=== PATIENT | female | born 1990 | race Asian ===

== ENCOUNTER 2022-03-24 09:32 | Outpatient (CLI) | payer BC | END 2022-03-24 09:33 | disposition home or self-care (01) | LOC: CSHLAB 09:32 | PROVIDERS: ATTEND Obstetrics & Gynecology | DX: Z01.812 Encounter for preprocedural laboratory examination (principal); Z20.822 Contact with and (suspected) exposure to COVID-19 | CPT/HCPCS: 85027; 86780; 86850; 86900; 86901; 87340; U0003; U0005 ==

== ENCOUNTER 2022-03-25 05:31 | Inpatient (IN) | payer BC ==
[2022-03-24 13:55] LABS: Hemoglobin 13.2 g/dL (12.0-15.5); Mean Corpuscular Hemoglobin 29.1 pg (27.0-33.0); Mean Corpuscular Volume 90.9 fl (81.6-98.3); Mean Platelet Volume 11.1 fl (7.4-10.4); Platelet Count 207 10x3/uL (150-450); RBC Distribution Width 14.2 % (11.5-14.5); Red Blood Cell (RBC) Count 4.53 10x6/uL (3.90-5.03); White Blood Cell (WBC) Count 5.4 10x3/uL (3.5-10.5)
[2022-03-24 14:34] LABS: Hep B Surf Ag Non-Reactive S/CO (NonReactive)
[2022-03-24 14:35] LABS: Syphilis Antibody Nonreactive (Nonreactive); Syphilis Antibody Index 0.14 S/CO (<1.00 Non-Reactive)
[2022-03-24 15:18] LABS: HBSAg Index 0.13 S/CO (0-0.99)
[2022-03-25] MEDS ORDERED: hydrALAZINE 20 MG/ML VIAL SLOW IVP PRN ×2 (05:59→09:42)
[2022-03-25] MEDS ORDERED: Bicitra 30 ML UDCUP PO PRN (05:59)
[2022-03-25] MEDS ORDERED: ceFAZolin 2 GM/Dextrose 50 ML 2 GM in Premix Bag 1 BAG IVPB SCH (05:59)
[2022-03-25] MEDS ORDERED: Ondansetron PF 4 MG/2 ML Vial IVP PRN ×3 (05:59→09:42)
[2022-03-25] MEDS ORDERED: Promethazine HCl 25 MG/ML VIAL IM PRN ×3 (05:59→09:42)
[2022-03-25] MEDS ORDERED: Famotidine/PF 20 mg/2ml Vial SLOW IVP PRN (05:59)
[2022-03-25] MEDS ORDERED: Lactated Ringer's 1,000 ML IV SCH (05:59)
[2022-03-25 06:00] VITALS: BMI 23.8
[2022-03-25] MEDS ORDERED: Morphine PF 10 MG/10 ML VIAL ONE (07:18)
[2022-03-25] MEDS ORDERED: Ondansetron PF 4 MG/2 ML Vial ONE (07:19)
[2022-03-25] MEDS ORDERED: ePHEDrine Sulfate 50 MG/10 ML VIAL ONE (07:19)
[2022-03-25] MEDS ORDERED: Ketorolac Tromethamine 30 MG/ML VIAL ONE (07:19)
[2022-03-25] MEDS ORDERED: Oxytocin 10 UNITS/ML VIAL ONE ×2 (07:19→08:53)
[2022-03-25] MEDS ORDERED: Glycopyrrolate 0.2 MG/ML 5 ML SYRINGE ONE (07:19)
[2022-03-25] MEDS ORDERED: Fentanyl 100 MCG/2 ML VIAL ONE (08:05)
[2022-03-25] MEDS ORDERED: diphenhydrAMINE 50 MG/ML VIAL IVP PRN (08:58)
[2022-03-25] MEDS ORDERED: Moisturizing Cream (Eucerin) 113 GM JAR TOP PRN (08:58)
[2022-03-25] MEDS ORDERED: Naloxone HCl 0.4 mg/ml Vial IVP PRN ×2 (08:58)
[2022-03-25] MEDS ORDERED: Naloxone HCl 0.4 mg/ml Vial IV PRN (08:58)
[2022-03-25] MEDS ORDERED: Ondansetron HCl/PF 4 MG/2 ML Vial IVP PRN (08:58)
[2022-03-25] MEDS ORDERED: Fentanyl 100 MCG/2 ML VIAL SLOW IVP PRN (08:58)
[2022-03-25] MEDS ORDERED: Promethazine HCl 25 MG SUPP PR PRN (08:58)
[2022-03-25] MEDS ORDERED: Meperidine HCl/PF 25 MG/ML VIAL SLOW IVP PRN (08:58)
[2022-03-25] MEDS ORDERED: Communication Order-Pharmacy FS SCH (09:00)
[2022-03-25] MEDS ORDERED: Boostrix 0.5 ML (Tdap) VIAL IM ONE (09:42)
[2022-03-25] MEDS ORDERED: Lanolin Ointment 7 GM TUBE TOP PRN (09:42)
[2022-03-25] MEDS ORDERED: diphenhydrAMINE 25 MG CAP PO PRN (09:42)
[2022-03-25] MEDS ORDERED: Polyethylene Glycol 3350 17 GM Packet PO PRN (09:42)
[2022-03-25] MEDS ORDERED: Bisacodyl 10 MG SUPP PR PRN (09:42)
[2022-03-25] MEDS ORDERED: Acetaminophen 500 MG TAB PO PRN (09:42)
[2022-03-25] MEDS ORDERED: Simethicone Chewable 80 MG TAB PO PRN (09:42)
[2022-03-25] MEDS ORDERED: NS w/ Oxytocin 30 units 500 ML IV SCH (09:42)
[2022-03-25] MEDS ORDERED: Prenatal Vitamin 1 TAB PO SCH (10:15)
[2022-03-25] MEDS ORDERED: Docusate 100 MG CAP PO SCH (10:15)
[2022-03-25] MEDS: Ferrous Sulfate 325 MG TAB PO SCH ×2 (11:35→20:27)
[2022-03-25 12:35] LABS: SARS-CoV-2 PCR by NAA Not Detected (NotDetected)
[2022-03-25] MEDS: Ketorolac Tromethamine 30 MG/ML VIAL IVP PRN ×2 (14:37→20:46)
[2022-03-25] MEDS ORDERED: Ketorolac Tromethamine 30 MG/ML VIAL IVP SCH (14:50)
[2022-03-25] MEDS: Docusate 100 MG CAP PO SCH (20:46)
[2022-03-25] MEDS ORDERED: HYDROcodone/Acetaminophen 5/325 mg Tablet PO PRN (21:00)
[2022-03-26 04:25] LABS: Hemoglobin 11.3 g/dL (12.0-15.5); Mean Corpuscular HGB CONC 33.1 g/dL (32.0-36.0); Mean Corpuscular Hemoglobin 29.6 pg (27.0-33.0); Mean Corpuscular Volume 89.3 fl (81.6-98.3); Mean Platelet Volume 10.6 fl (7.4-10.4); Platelet Count 162 10x3/uL (150-450); RBC Distribution Width 14.3 % (11.5-14.5); Red Blood Cell (RBC) Count 3.82 10x6/uL (3.90-5.03); White Blood Cell (WBC) Count 8.9 10x3/uL (3.5-10.5)
[2022-03-26] MEDS: Ketorolac Tromethamine 30 MG/ML VIAL IVP PRN (05:16)
[2022-03-26] MEDS: Docusate 100 MG CAP PO SCH ×2 (09:14→21:10)
[2022-03-26] MEDS: Prenatal Vitamin 1 TAB PO SCH (09:15)
[2022-03-26] MEDS: HYDROcodone/Acetaminophen 5/325 mg Tablet PO PRN ×3 (09:16→17:56)
[2022-03-26] MEDS: Ferrous Sulfate 325 MG TAB PO SCH ×2 (09:18→20:12)
[2022-03-26] MEDS: Ibuprofen 800 MG TAB PO SCH (21:10)
[2022-03-27] MEDS: HYDROcodone/Acetaminophen 5/325 mg Tablet PO PRN ×2 (03:38→11:02)
[2022-03-27] MEDS: Ibuprofen 800 MG TAB PO SCH (05:00)
[2022-03-27 07:53] VITALS: BP 133/78; TEMP 97.6
[2022-03-27] MEDS: Docusate 100 MG CAP PO SCH (08:10)
[2022-03-27] MEDS: Prenatal Vitamin 1 TAB PO SCH (08:10)
[2022-03-27] MEDS: Ferrous Sulfate 325 MG TAB PO SCH (08:55)
== END 2022-03-27 13:45 | disposition home or self-care (01) | DRG 788 ==
LOC: CSHLD 05:31 → CSHPP 11:20
PROVIDERS: ADMIT Obstetrics & Gynecology; ATTEND Obstetrics & Gynecology
PROC: 10D00Z1 Extraction of Products of Conception, Low, Open Approach (ICD-10-PCS; principal; 2022-03-25)
PROC: 0UB90ZZ Excision of Uterus, Open Approach (ICD-10-PCS; 2022-03-25)
DX: O34.211 Maternal care for low transverse scar from previous cesarean delivery (principal); Z20.822 Contact with and (suspected) exposure to COVID-19; Z3A.39 39 weeks gestation of pregnancy; Z37.0 Single live birth; O34.13 Maternal care for benign tumor of corpus uteri, third trimester; D25.9 Leiomyoma of uterus, unspecified; O32.8XX0 Maternal care for other malpresentation of fetus, not applicable or unspecified; O69.81X0 Labor and delivery complicated by cord around neck, without compression, not applicable or unspecified; K66.0 Peritoneal adhesions (postprocedural) (postinfection); O99.62 Diseases of the digestive system complicating childbirth
CPT/HCPCS: 36415; 85027; 86780; 86850; 86900; 86901; 87340; 88305; J0690; J1885; J2274; J2405; J2590; J3010; U0003; U0005